=== PATIENT | male | born 1955 | race Caucasian/White ===

== ENCOUNTER 2017-04-07 12:00 | Inpatient (IN) | payer OTHER ==
[~2017-04-07] VITALS: Ht 188 cm; Wt 111.1 kg
--- NOTE | ~2017-04-07 | DS ---
PATIENT'S NAME: KIERSTEN ANDERSON [facility] AGE: 61 Y [address] ROOM: [address] [place], [place] [address] LOCATION: GPCU ADMIT DATE: 04/07/2017 Discharge Summary DISCHARGE DATE: 04/11/2017 FAMILY PHYSICIAN: Angel Luis Hughes MD ATTENDING PHYSICIAN: Sheron Reynolds DISCHARGE DIAGNOSES: 1. Acute anterior wall ST-segment elevation myocardial infarction, treated with primary percutaneous coronary intervention. 2. Ejection fraction of 35% to 40%. 3. Hypertension. 4. Tobacco abuse. 5. Heartburns. 6. Residual 70% or so lesion involving obtuse marginal 1. DISCHARGE MEDICATIONS: 1. Aspirin 81 mg once a day. 2. Atorvastatin 80 mg a day. 3. Metoprolol 12.5 mg 3 times a day. 4. Protonix 40 mg a day. 5. Brilinta 90 mg b.i.d. 6. Tylenol p.r.n. 7. Nitroglycerin 0.4 mg sublingual as needed. COURSE IN HOSPITAL: The patient was initially admitted to [place] [facility]. He was clearly having an acute anterior wall OK. He was started on heparin and Integrilin and the patient could not be flown because of the weather and so was here brought over by ground ambulance. Primary PCI of type 3 LAD proximal lesion was performed. There was also additional lesions involving obtuse marginal 1, which probably need to be kept an eye on. Initially, he also had an intraaortic balloon pump placed because of very large area of myocardium subtended by the lesion. By his lab work, his CPK went to a maximum of 6262. His initial echocardiogram revealed an ejection fraction of 30% to 35%. The patient had LESTER-3 flow at the end of the procedure and had no further chest pains. His balloon pump was removed 24 hours later. He did have borderline low blood pressure during the hospitalization. He was started on a small dose of beta-blockers and he began to gain strength over the next few days. He had no significant arrhythmias noted. Before his discharge, a repeat echocardiogram revealed an ejection fraction of 35% to 40%. There was no apical hematoma noted in the LV. The patient is being discharged home, to be seen in 2 weeks, up until then he is going to take it easy and not to do anything physically strenuous. He is not going to drive. He is going to start cardiac rehab after he has seen me. If he has any problems with tolerating any other medications, I have asked him PATIENT'S NAME: KIERSTEN ANDERSON [facility] AGE: 61 Y [address] ROOM: [place] [address] [facility] ADMIT DATE: 04/07/2017 Discharge Summary DISCHARGE DATE: 04/11/2017 FAMILY PHYSICIAN: Angel Luis Hughes MD ATTENDING PHYSICIAN: Sheron Reynolds to call me. As the patient is a smoker, we had given him strong recommendations to stop completely smoking at this time. He will also be on low-fat diet and an exercise program will be discussed after he is done with his cardiac rehab. MD DINORAH RAMOS/kody /[id number] d: 04/17/17 1813 t: 04/24/17 1349, DISCHARGE SUMMARY
--- NOTE | ~2017-04-07 | HP ---
PATIENT'S NAME: KIERSTEN RAO [facility] AGE: 61 Y [address] ROOM: [id number] [place], [place] [address] LOCATION: [facility] ADMIT DATE: 04/07/2017 History & Physical DISCHARGE DATE: FAMILY PHYSICIAN: Angel Luis Hughes MD ATTENDING PHYSICIAN: Shade Perez DATE OF SERVICE: 04/07/2017 INDICATION: Acute ST-segment elevation NH. HISTORY OF PRESENT ILLNESS: Mr. Rao is a 61-year-old male patient, who was in his pale order when he developed a sense of feeling very hot and developed chest pain which radiated to the left arm. He went to the [place] [facility], where an EKG revealed acute ST-segment elevation NH. After discussing with myself, the patient was started on aspirin, heparin, and Integrilin and was transferred by ground ambulance. Because of weather, he could be flown in. The patient has had a similar episode about a week ago that lasted about 5 minutes. He has through the week had recurrent episodes of nausea, vomiting, and some heartburns. He has recently had a physical exam for his knee scope which was done recently according to him, but he cannot remember. 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 He has been in functional class II. He does not have any structured exercise program. There is no paroxysmal nocturnal dyspnea or orthopnea. He has never had sleep apnea diagnosed. He denies lightheadedness, dizziness, syncope, presyncope, palpitations, etc. He had a little bit of an ankle swelling after he had his knee scope. The patient has history of hypertension and he smokes. His lipids are unknown. He is not diabetic, and there is no family history of premature coronary artery disease. His son at age of 20 had a sudden cardiac from sounds of it. He denies NH or angina or nitroglycerin use. There is no history of rheumatic fever, heart murmur, heart failure, dilated or enlarged heart, or any diagnosed cardiac arrhythmias. MEDICATIONS: The patient currently does not take any medication on a regular basis. He takes an occasional Tylenol, ibuprofen, or heartburn medication on a p.r.n. basis. PAST MEDICAL HISTORY: PATIENT'S NAME: [facility] AGE: 61 Y [address] ROOM: [place] [address] LOCATION: [facility] ADMIT DATE: 04/07/2017 History & Physical DISCHARGE DATE: FAMILY PHYSICIAN: Angel Luis Hughes MD ATTENDING PHYSICIAN: Shade Perez 1. Cholecystectomy. 2. Prostate surgery. 3. Knee scope. 4. Cyst removed from the ankle. SOCIAL HISTORY: The patient is . He denies abusing alcohol or any recreational drugs. His appetite is poor. Weight is down by 7 pounds. Sleep is fair. FAMILY HISTORY: No premature coronary artery disease, but has history of sudden cardiac in his son at the age of 20. REVIEW OF SYSTEMS: Twelve-point review of systems reveal: 1. Corrective lenses. 2. Heartburns. 3. DJD. PHYSICAL EXAMINATION: VITAL SIGNS: On examination, his blood pressure is 120s/70s, heart rate is in the low 100s and regular, sinus rhythm, respiration is 20, afebrile. HEENT: Normal. NECK: Supple with no JVD, thyromegaly, lymphadenopathy, or carotid bruit. PMI is not well located. First and second heart sounds are regular. There are no added sounds or murmurs. CHEST: Clear to auscultation. ABDOMEN: Soft and nontender. Bowel sounds are normally present. EXTREMITIES: Reveal no edema. CENTRAL NERVOUS SYSTEM: Intact. DIAGNOSTIC STUDIES: His 12-lead EKG is consistent with acute ST-segment elevation myocardial infarction involving the anterior wall. His CBC and BMP are within normal range. RECOMMENDATIONS: Proceed with primary PCI. SHADE PEREZ MD AMK/kenroyl PATIENT'S NAME: [facility] AGE: 61 Y [address] ROOM: [place] [address] LOCATION: [facility] ADMIT DATE: 04/07/2017 History & Physical DISCHARGE DATE: FAMILY PHYSICIAN: Angel Luis Hughes MD ATTENDING PHYSICIAN: Shade Perez /[id number] D: [id number] T: [id number] HISTORY & PHYSICAL
--- NOTE | ~2017-04-07 | ECHO ---
Transthoracic Echocardiography Report (TTE) Demographics Patient Name KIERSTEN ANDERSON Date of Study 04/07/2017 Patient Number [id number] Visit Number [id number] Date of 1955 Room Number [id number] Gender Male Number Age 61 year(s) Referring Gail Holbrook Soft Mud Molder Tyrone Muñoz RDCS, Physician RVT Saul Roca MD Physician Interpreting Gail Holbrook Trailhead Construction Worker Physician Supervising Ordering Gail Holbrook MD/MLP Physician Nurse Stress Urban Sociologist Conclusions Contractility Score Summary At rest the following contractility abnormalities were noted: Hypokinesis of the Mid jaswinder-lateral, the Mid anterior, the Mid infero-septal, the Mid inferior, the Mid infero-lateral and the Basal jaswinder-septal segments; Akinesis of the Mid jaswinder-septal, the Apical inferior, the Apical septal, the Apical lateral, the Apical anterior and the Apical cap segments. Contractility of all other segments appeared normal. Summary The estimated left ventricular ejection fraction is 30-35% due to severe hypokinesia involving the distal anterior,distal lateral,distal inferior york and apex.LV internal dimension and wall thickness are normal. Pleural effusion present. After Definity contrast iv there is no filling defect suggestive of thrombus. Procedure Type of Study TTE procedure:2D Echocardiogram, Echo with Contrast. Procedure Date Date: 04/07/2017 Start: 05:12 PM Study Location: Inpatient Portable Technical Quality: Adequate visualization Indications:Myocardial infarction. Appropriate Use Criteria: 9 Patient Status: Routine Contrast Medium: Definity. Amount - 5 ml HR: 96 bpm BP: 123/79 mmHg Allergies - Antibiotics. M-Mode/2D Measurements LV Diastolic Dimension: 3.48 cm LV Systolic Dimension: 2.82 cm LV Septum Diastolic: 1.11 cm LV PW Diastolic: 0.94 cm Cardiac Output: 8.34 l/min LA Dimension: 3 cm LVOT: 2.5 cm RV Base: 3.64 cm LVOT VTI: 17.7 cm RV Mid: 2.79 cm LV Stroke volume: 86.84 ml TAPSE: 1.66 cm TDI-S': 13.7 cm/s Doppler Measurements AV Peak Velocity: 0.92 m/s MV Peak E-Wave: 0.92 m/s AV Peak Gradient: 3.42 mmHg AV Mean Gradient: 2 mmHg MV P1/2t: 43 msec LVOT Peak Velocity: 0.95 m/s TR Velocity:1.19 m/s TR Gradient:5.66 mmHg Estimated PASP: 13.66 mmHg Estimated RAP:8 mmHg A' Septal Velocity: 0.1 m/s Estimated RVSP: 14 mmHg A' Lateral Velocity: 0.16 m/s E' Septal Velocity: 0.07 m/s E' Lateral Velocity: 0.06 m/s Findings Left Ventricle LVEF:30-35% due to severe hypokinesia involving distal anterior,distal lateral,distal inferior york and apex.There is no apical thrombus.LV internal dimension and wall thickness are normal. Right Ventricle Normal right ventricle structure and function. Left Atrium Normal left atrial size. Right Atrium Normal right atrial size. Mitral Valve Normal mitral valve structure and function. Aortic Valve Normal aortic valve structure and function. Velocities may be inaccurate due to balloon pump. Tricuspid Valve Trivial tricuspid regurgitation by color Doppler. Pulmonic Valve The pulmonic valve is not well visualized. Pericardial Effusion No evidence of pericardial effusion. Miscellaneous Visualized portions of the aortic root appear normal in size. Pleural Effusion Pleural effusion present. Contractility Score LV regional wall motion:(0-Non visualized 1-Normal 2-Hypokinesis 3-Akinesis 4-Dyskinesis 5-Aneurysm) Signature dtt: Sheron Reynolds dtd: 04/07/17 3235 Physician Self Edit
--- NOTE | ~2017-04-07 | ECHO ---
Transthoracic Echocardiography Report (TTE) Demographics Patient Name KIERSTEN ANDERSON Date of Study 04/11/2017 Patient Number [id number] Visit Number [id number] Date of 1955 Room Number [id number] Gender Male Number Age 61 year(s) Referring Gail Holbrook Client Account Assistant Tyrone Muñoz RDCS, Physician MD JOSHUA Roca MD Physician Interpreting Gail Holbrook Bridge Rigger Physician Supervising Ordering Gail Holbrook MD/GREGORYP Physician Nurse Stress Carcass Washer Conclusions Contractility Score Summary At rest the following contractility abnormalities were noted: Hypokinesis of the Mid anterior segment; Akinesis of the Apical inferior, the Apical septal, the Apical lateral, the Apical anterior and the Apical cap segments. Contractility of all other segments appeared normal. Summary The estimated left ventricular ejection fraction is 35%-40%. [place] is severely hypokinetic. Normal LA size. Procedure Type of Study TTE procedure:Echo Limited w/o Contrast. Procedure Date Date: 04/11/2017 Start: 10:15 AM Study Location: Inpatient Portable Technical Quality: Adequate visualization Indications:Low EF and Myocardial infarction. Appropriate Use Criteria: 9 Patient Status: Routine HR: 74 bpm BP: 110/56 mmHg Allergies - Antibiotics. M-Mode/2D Measurements LV Diastolic Dimension: 3.79 cm LV Systolic Dimension: 2.46 cm LV Septum Diastolic: 0.9 cm LV PW Diastolic: 0.86 cm LA Dimension: 3.6 cm Findings Left Ventricle The left ventricle is normal in size . Contractility Score LV regional wall motion:(0-Non visualized 1-Normal 2-Hypokinesis 3-Akinesis 4-Dyskinesis 5-Aneurysm) Signature dtt: Sheron Reynolds dtd: 04/11/17 1015 Physician Self Edit
--- NOTE | ~2017-04-07 | CATH ---
Cardiac Diagnostic + PCI Report Demographics Patient Name MONICA Lange Gender Male Date of 1955 Age 61 year(s) Patient Number [id number] Date of Study 04/07/2017 Visit Number [id number] Room Number G6333 Corporate ID Ht 188 cm Wt 108 kg Referring [facility] Primary Physician Physician [facility] Performing Gail Secondary Physician Physician Sheron SANCHEZ Diagnostic Gail Assisting Physician Physician Sheron SANCHEZ Interventional Gail Physician Mailroom Clerk Physician Sheron SANCHEZ Findings and Conclusions Diagnostic Findings and Conclusion Acute anterior STEMI. Diagnostic Recommendations PCI proximal large LAD. IABP secondary to 40% of myocardium involved. Large OM lesion need future evaluation and treatment. Interventional Findings and Conclusion Successful PAMELA to proximal LAD. Successful placement of the IABP. Interventional Recommendations DAPT for one year. Aggressive secondary precaution measures. Stress in 3 months to evaluate OM1. Procedure Description The patient was brought to the diagnostic cardiac catheterization-EP laboratory by emergency personal. Physician deemed procedure as EMERGENT. The planned puncture-incision site(s) were shaved and prepped with ChloraPrep and draped in the usual sterile manner. Conscious sedation, supplemental oxygen, and pain control medications were delivered by a registered nurse under physician guidance. Surface ECG rhythm, blood pressure measurement, and pulse oximetry were monitored throughout the procedure. Arterial access. The access site was infiltrated with lidocaine. The vessel was entered with the Seldinger technique. A sheath was advanced into the vessel and used for catheter placement. Selective left coronary angiography. A catheter was advanced into the left coronary vessel ostium under Fluoroscopic guidance. Contrast was injected by hand. Images were obtained in multiple projections. Selective right coronary angiography. A catheter was advanced into the right coronary vessel ostium under fluoroscopic guidance. Contrast was injected by hand. Images were obtained in multiple projections. Angioplasty and Stent Placement: A guiding catheter was used to intubate the vessel. A 0.14 wire was then used to cross the lesion. A balloon catheter was placed across the lesion and inflated. The balloon catheter was then removed. A Drug Eluting Stent was placed and inflated. Post placement angiograms were performed. IABP placement. The balloon catheter was advanced into the aorta and the tip was fluoroscopically positioned just distal to the left subclavian artery origin. The floppy guidewire was removed, and the central lumen of the catheter was flushed and attached to a pressure transducer. Balloon pumping was initiated, adjusting inflation and deflation times to maximize diastolic augmentation and minimize presystolic LV afterload. The intra-aortic balloon catheter was sutured in place at the end of the procedure. Arterial artery hemostasis was achieved. The patient was transferred to ICU via cart accompanied by a nurse. The patient left the laboratory in stable condition. Diagnostic Cath Status: Emergency Interventional Cath Status: Emergency Procedure Procedure Type Diagnostic procedure:Angiography:, Coronary Angios PCI procedure:Drug Eluting Coronary Stent:, LAD, Support:, IABP:, Insertion Indications: Acute IN, ST changes and Acute anterior wall IN. Angiographic Findings Dominance: Left Cardiac Arteries and Lesion Findings LMCA: Luminal irregularities. LAD: Type III proximal 100% stenosis at first small Diag. Lesion on Prox LAD: Proximal subsection.100% stenosis 20 mm length reduced to 0%. Pre procedure LESTER 0 flow was noted. Post Procedure LESTER III flow was present. The guidewire cross was successful.The lesion was diagnosed as a low risk lesion.Culprit lesion. Devices used - Luge Wire .014 x 182. Number of passes: 1. - Emerge Balloon 2.0 x 15. 2 inflation(s) to a max pressure of: 6 brian. - Emerge Balloon 3.0 x 20. 3 inflation(s) to a max pressure of: 14 brian. - Promus Premier 3.0 x 20 Stent. 2 inflation(s) to a max pressure of: 16 brian. LCx: Luminal irregularities. OM 1 large, proximal 70% stenosis then multiple small OMs. Lesion on 1st Ob Evon: Proximal subsection.70% stenosis . RCA: Non-dominant. 50% stenosis. Lesion on Prox RCA: Mid subsection.50% stenosis . Coronary Tree Procedure Data Procedure Date Date: 04/07/2017Start: 12:30 PMEnd: 02:18 PM Entry Locations - Retrograde Percutaneous access was performed through the Right Femoral artery (Primary location). A 7 Fr sheath was inserted. Procedure Medications Order and Administration + + + + + !Time !Medication !Dosage !Route ! + + + + 04/07/2017 12:29 PM!Versed !2 mg !I.V. ! + + + + + !04/07/2017 12:29 PM!Fentanyl !50 mcg !I.V. ! + + + + 04/07/2017 12:34 PM!Integrilin (ACC_7) !19 mg !I.V. bolus ! + + + + + 04/07/2017 12:42 PM!Heparin (ACC_3) !4000 units!I.V. bolus ! + + + + + 04/07/2017 01:02 PM!Fentanyl !50 mcg !I.V. ! + + + + + !04/07/2017 01:30 PM!Brilinta (Ticagrelor) (ACC_20)!180 mg !P.O. ! + + + + + !04/07/2017 01:45 PM!Heparin (ACC_3) ! !I.V. drip ! + + + + + Devices Used - A6 Fr. BS JR 4 Diag. Catheterwas used for:Right coronary angiography. - A6 Fr. BS JL 4 Diag. Catheterwas used for:Left coronary angiography. - A6 Fr. EBU 4 Guide Catheterwas used for:LAD Intervention.Unable to cannulate the vessel. - A6 Fr. EBU 3.5 Guide Catheterwas used for:LAD Intervention. Contrast Material - Isovue [id number] ml Fluoroscopy Time: Diagnostic: 16:42 minutes. Total: 16:42 minutes. Fluoroscopy Dose: Diagnostic: 3529 mGy. Total: 3529 mGy. Estimated Blood Loss: 20 ml. IABP: IABP was Inserted after PCI has begun. Medical History Allergies - Antibiotics. Risk Factors The patient risk factors include:Current/Recent(w/in 1 year) tobacco use. Admission Data Admission Date: 04/07/2017 Admission Time: 12:15 PM Admit Source: Transfer acute care facility Insurance Payors: Private health insurance. Clinical Evaluation Leading to Procedure - The patient's CAD presentation was assessed as: STEMI.The symptom onset was first noted on 04/07/2017 09:00 AM(time was estimated). Hemodynamics Condition: Rest O2 Consumption: Estimated: 295.51Heart Rate: 95 bpm Pressures (mmHg) +-----+ + !Site !Pressure ! +-----+ + !AO !118/83 (98) ! +-----+ + !AO !97/65 (79) ! +-----+ + !AO !/ (230) ! +-----+ + !AO !121/77 (99) ! +-----+ + Shunts Oxygen Values O2 Capacity 223.04 O2 Consumption 295.51 Signatures dtt: Sheron Reynolds dtd: 04/07/17 1230 Physician Self Edit
[2017-04-07] MEDS ORDERED: ADVIL200 MG PO (15:28)
[2017-04-07] MEDS ORDERED: ZANTAC (NON-FO150 MG PO (15:28)
--- NOTE | 2017-04-07 15:59 | NUR ---
CONSULT RECEIVED FOR HEART HEALTHY DIET EDUCATION. WILL PROVIDE DIET EDUCATION PRIOR TO DISMISSAL.
[2017-04-07 16:29] LABS: CPK 6262 IU/L (35-332)
[2017-04-07 18:34] LABS: BASOPHIL % 0.1 %; EOSINOPHIL % 0.1 %; HEMATOCRIT 44.6 % (37.0-53.0); HEMOGLOBIN 15.1 g/dL (11.0-16.0); IMMATURE GRANULOCYTE # 0.1 K/uL (0.0-0.3); IMMATURE GRANULOCYTE % 0.3 %; LYMPHOCYTE # 1.9 K/uL (0.8-4.0); LYMPHOCYTE % 13.5 %; MCH 30.2 pg (27.0-34.0); MCHC 33.9 gm/dL (32.0-36.5); MCV 89.2 fl (83.0-98.0); MONOCYTE # 1.3 K/uL (0.0-1.0); MPV 9.2 fl (9.4-12.4); NEUTROPHIL # (ANC) 11.1 K/uL (1.4-9.0); NRBC % 0 /100WBC (0-0.00); PLATELET COUNT 239 K/uL (150-450); RDW-CV 13.1 % (11.9-14.6); WBC 14.4 K/uL (4.0-11.0)
--- NOTE | 2017-04-07 18:58 | NUR ---
Significant Event: CARDIO: IABP, 100%, 1:1. AUGMENTED PRESSURE 120S-150S. Afebrile. Hematoma not progressing past marked area. HR 95-100. GI: Acid reflux. Emesis x 2. Zofran 4 mg given. Protonix given. PAIN: Morphine 4mg x 1.
[2017-04-07 21:52] LABS: CPK 4466 IU/L (35-332)
[2017-04-08 04:21] LABS: ALBUMIN 3.4 gm/dL (3.5-5.0); ALK PHOS 142 IU/L (33-138); BLOOD UREA NITROGEN 25 mg/dL (6-24); CALCIUM 8.2 mg/dL (8.5-10.5); CHLORIDE 105 mMol/L (96-110); CO2 24 mMol/L (22-32); CREATININE 0.8 mg/dL (0.6-1.3); ESTIMATED GFR (MDRD EQUATION) > 60; SODIUM 138 mMol/L (135-145); TOTAL BILIRUBIN 0.7 mg/dL (0.0-1.5)
[2017-04-08 04:22] LABS: ALT 398 IU/L (12-78); AST 726 IU/L (10-40)
--- NOTE | 2017-04-08 05:52 | NUR ---
PT REMAINS ON IABP, 1:1 ASSIST, 100% AUGMENTATION. PULSES REMAIN PALPABLE IN WRISTS, DOPPLARABLE IN BLE. 500 ML UOP THIS SHIFT. LESS NAUSEA/VOMITING SHIFT PROGRESSED, TOLERATING PO INTAKE BETTER SHIFT PROGRESSED. DR. Whyte UPDATED WITH ISSUES REGARDING VOMITING; ONE TIME ORDER FOR REGLAN RECEIVED AND GIVEN WITH POSITIVE EFFECT. HR NOW 60S-70S RATHER THAN 100S UPON THIS RN'S ARRIVAL. AFEBRILE. RESTLESS THIS SHIFT DUE TO DISCOMFORT WITH KEEPING RLE STRAIGHTENED OUT. PRN DOSE OF APAP GIVEN AT 0520 FOR COMPLAINTS OF BACK BEING ACHY. INTEGRILIN STOPPED AT 1999, NS STOPPED AFTER 750 ML INFUSED. NEVA SHORT RN
--- NOTE | 2017-04-08 16:27 | NUR ---
SIGNIFICANT EVENT: PATIENT ALERT, ORIENTED X3. OPES EYES SPONTANEOUSLY AND TO VOICE. PUPILS EQUAL AND REACTIVE. SPEECH IS CLEAR AND APPROPRIATE. PATIENT MOVES ALL 4 EXTREMITIES SPONTANEOUSLY AND TO COMMANDS. EQUAL STRENGTH THROUGHOUT. PATIENT HAS BEEN I NSINUS RHYTHM HR 60-70S. PULSES PALPABLE THROUGHOUT, DOPPLERED BILAT PULSES. AFEBRILE, MAX TEMP 99.4. INTRA-AORTIC BALLOON PUMP IN 1:1 UNTIL 1200, THEN SWITCHED TO 1:[address] NASH D/C'D IABP AT BEDSIDE AT 1530, 20 MINUTES OF MANUAL PRESSURE HELD, THEN FEM STOP APPPLIED AT 70 MMHG PER OORDER. ORDERS TO KEEP AT FEM STOP ON FOR 6 HOURS, RELEASE ALL PRESSURE FOR 5 MINUTES, THEN RE APPLY FEM STOP AT 70MMHG FOR 1 HOUR AND REPEAT FOR 6 HOURS. PATIENT TOLERATING WELL, NO NEW HEMATOMAS NOTED. PULSES INTACT POST IABP D/C. BEDREST/ FLAT FOR 6 HOURS. PATIENT HAS BEEN ON ROOM AIR, SATS MID TO UPPER 90S. BOWEL SOUNDS ACTIVE, NO BM. ADEQUATE URINE OUTPUT, VOIDS PER URINAL. NO NEW SKIN ISSUES NOTED. BATH COMPLETED. FOLLOW UP: CONTINUE TO MONITOR, FOLLOW FEM STOP ORDERS
[2017-04-09 05:16] LABS: ANION GAP 10.7 (10.0-19.0); BLOOD UREA NITROGEN 22 mg/dL (6-24); CALCIUM 8.4 mg/dL (8.5-10.5); CHLORIDE 104 mMol/L (96-110); CO2 28 mMol/L (22-32); CREATININE 0.7 mg/dL (0.6-1.3); ESTIMATED GFR (MDRD EQUATION) > 60; POTASSIUM 3.7 mMol/L (3.7-5.1); SODIUM 139 mMol/L (135-145)
--- NOTE | 2017-04-09 06:44 | NUR ---
FEMSTOP REMOVED AT 2139, NO COMPLICATIONS FOR THIS RN. PT SAT UP, DANGLED AT BEDSIDE, AND AMBULATED WITHOUT INCIDENT. SLEPT WELL THIS SHIFT. GROIN REMAINS BRUISED WITH SLIGHTLY FIRM AREAS FROM HEMATOMA. UOP ADEQUATE. REMAINS ON ROOM AIR. NO COMPLAINTS OF PAIN NOW THAT HE IS ABLE TO MOVE INDEPENDENTLY. NEVA SHORT RN
--- NOTE | 2017-04-09 13:57 | NUR ---
A-SCREENED D/T MST; VISITED W/PT AND HE WAS ABLE TO RELAY HIS WT HX. PT HAS LOST ABOUT 4.4% OF HIS WT OVER THE LAST 2 MOS; NOT A SIG. AMOUNT. PT HAD A SCOPE ON HIS KNEE AT THAT TIME, AND HE WAS NOT ACTIVE SO HIS APPETITE WAS LESS THAN USUAL. HE REPORTS THAT HIS APPETITE IS IMPROVING; IT DEPENDS ON THE FOOD AND MEAL. HEART HEALTY DIET ED CONSULT RECEIVED; PT STATES HE HAS NEVER HAD ANY DIET EDUCATION PRIOR TO THIS ADMIT. 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 S/P CODE STEMI. BALLOON PUMP OUT. PCU STATUS HT: 74 IN. WT: 108 KG. BMI: 30.6 LABS: NA: 139, K+ 3.7, GLU 106, BUN 22, ANTHROPOLOGY AND ARCHEOLOGY INSTRUCTOR 0.7, ALB 3.4 MEDS: LIPITOR, PROTONIX, BRILINTA, ZOFRAN, PRD BOWEL MEDS, MORPHINE DIET RX: CARDIAC. PO INTAKE 50% EST NUTR NEEDS: [id number] KCALS (20-25 KCALS/KG) 86-108 GM PROTEIN (0.8-1.0 GM/KG) 1 ML FLUID/KCAL D-NOT AT NUTRITION RISK; NO NUTRITION RISK IDENTIFIED I-WILL COMPLETE DIET EDUCATION PRIOR TO D/C M/E-WILL ASSIST NEEDED
--- NOTE | 2017-04-09 15:49 | NUR ---
Introduced self and CM role to Ildefonso and his daughter who was at bedside. Ildefonso tells me that prior to coming into us, he was living at home, alone, in [place], [place] and it is his goal to return there when he is medically cleared to do so. Daughter states she lives near by and checks on him frequently. She did ask about POA paperwork to fill out incase they would ever need to refer to it for some reason. I gave her the advanced directive booklet and encouraged her to read through it with Ildefonso and fill it out as best as they could. I let her know that we did have someone in house that could notorize it if needed, but they would only be able to do it when they had a free moment to do so that could take a bit. She voiced understanding to this. Ildefonso is hopeful that he can go home in the next couple of days. Daughter did request records so they could send them into his [employer] policy in order to get money back from them. Let her know that she could have Ildefonso sign a release of medical records and obtain them when he was to be dismissed, but not sure that I could give them to her at this point. The records she wanted, were actually those from [facility], so I encouraged her to call down to their hospital and see if they could give her the paperwork that she was needed. She was going to do this. No other questions, needs or concerns. CM to continue to follow and assist. Plan home.
[2017-04-10 04:01] LABS: BASOPHIL % 0.3 %; EOSINOPHIL # 0.2 K/uL (0.0-0.5); EOSINOPHIL % 1.5 %; HEMATOCRIT 33.7 % (37.0-53.0); HEMOGLOBIN 11.7 g/dL (11.0-16.0); IMMATURE GRANULOCYTE # 0.1 K/uL (0.0-0.3); IMMATURE GRANULOCYTE % 0.5 %; LYMPHOCYTE # 3.2 K/uL (0.8-4.0); LYMPHOCYTE % 27.3 %; MCH 30.2 pg (27.0-34.0); MCHC 34.7 gm/dL (32.0-36.5); MCV 87.1 fl (83.0-98.0); MONOCYTE # 1.3 K/uL (0.0-1.0); MONOCYTE % 10.8 %; MPV 9.1 fl (9.4-12.4); NEUTROPHIL # (ANC) 6.9 K/uL (1.4-9.0); NEUTROPHIL % 59.6 %; NRBC % 0 /100WBC (0-0.00); RBC 3.87 M/uL (3.50-5.50); RDW-CV 12.9 % (11.9-14.6); WBC 11.6 K/uL (4.0-11.0)
[2017-04-10 04:03] LABS: PLATELET COUNT 185 K/uL (150-450)
[2017-04-10 04:15] LABS: ANION GAP 11.6 (10.0-19.0); BLOOD UREA NITROGEN 18 mg/dL (6-24); CALCIUM 8.3 mg/dL (8.5-10.5); CHLORIDE 102 mMol/L (96-110); CO2 28 mMol/L (22-32); CREATININE 0.7 mg/dL (0.6-1.3); ESTIMATED GFR (MDRD EQUATION) > 60; POTASSIUM 3.6 mMol/L (3.7-5.1); SODIUM 138 mMol/L (135-145)
--- NOTE | 2017-04-10 05:06 | NUR ---
Significant Event:Patient transfered to PCU post code STEMI on 04/07. Ballon pump dc'd on 04/08, stent to the LAD. R)groin, hip, and thigh bruised no hematoma noted. CSM wnl. Pulses 2-1-2. No c/o pain. VSS on RA. PIV to R)hand saline locked. Follow up:Possible discharge?
--- NOTE | 2017-04-10 13:50 | NUR ---
HEART HEALTHY DIET ED COMPLETED W/PT. PT ASKED QUESTIONS DURING OUR VISIT. EXPECT GOOD COMPLIANCE. WRITTEN INFORMATION, ALONG WITH RD CONTACT INFORMATION LEFT WITH PT. ENCOURAGED TO CALL OR EMAIL WITH ANY QUESTIONS.
--- NOTE | 2017-04-10 16:38 | NUR ---
Significant Event: A/O X 3. UP AD VAIBHAV. DENIES CHEST PAIN. ECHO 30-35%. AFEBRILE HR SR IN 70-80'S. SBP A05-118. SATS 95% ON ROOM AIR. RT. GROIN, BRUISED, NO HEMATOMA. BANDAGE REMOVED, OPEN TO AIR. CONT. ON LOPRESSOR ORAL MED. Follow up: WILL RECHECK ECHO AT 2-3PM TOMORROW AND LOOK AT POSSIBLE DISCHARGE.
--- NOTE | 2017-04-11 05:11 | NUR ---
Significant Event: Patient alert and oriented. Up ad lola. Denies pain. VSS on room air. Pleasant and cooperative with cares Follow up: continueto to monitor,
--- NOTE | 2017-04-11 16:21 | NUR ---
AAOx3. Cooperative with cares. Up independently; ambulated in halls x3 today. Pt reported formed BM. Tolerating cardiac diet well. VSS, afebrile, on RA. Denies nausea, vomiting, and diarrhea. No calls from tele. IV s/l'd to RH. Rt groin/thigh wrapping laterally ecchymotic. Echo this afternooon.
[2017-04-11] MEDS ORDERED: ASPIRIN (CHILDR81 MG PO (18:42)
[2017-04-11] MEDS ORDERED: LIPITOR80 MG PO (18:44)
[2017-04-11] MEDS ORDERED: LOPRESSOR25 MG PO (18:45)
[2017-04-11] MEDS ORDERED: PROTONIX40 MG PO (18:46)
[2017-04-11] MEDS ORDERED: BRILINTA90 MG PO (18:47)
[2017-04-11] MEDS ORDERED: TYLENOL325 MG PO (18:48)
--- NOTE | 2017-04-12 15:24 | NUR ---
04/11/17 Introduced self and purpose of heart healthy education and care transitions. Calendar given, information reviewed, verbalized understanding.
== END 2017-04-11 19:30 | disposition disaster alternative care site (69) | DRG 272 ==
LOC: EDSTATUS 12:00 → GPCU 12:00 → GICU 12:15 → GPCU 12:15 → GICU 13:53 → GPCU 04-09 22:32
PROVIDERS: ADMIT Internal Medicine Interventional Cardiology
PROC: B246ZZZ Ultrasonography of Right and Left Heart (ICD-10-PCS; principal; 2017-04-07)
PROC: 027034Z Dilation of Coronary Artery, One Artery with Drug-eluting Intraluminal Device, Percutaneous Approach (ICD-10-PCS; principal; 2017-04-07)
PROC: 5A02210 Assistance with Cardiac Output using Balloon Pump, Continuous (ICD-10-PCS; principal; 2017-04-07)
PROC: B2111ZZ Fluoroscopy of Multiple Coronary Arteries using Low Osmolar Contrast (ICD-10-PCS; principal; 2017-04-07)
PROC: B246ZZZ Ultrasonography of Right and Left Heart (ICD-10-PCS; 2017-04-11)
DX: I21.3 ST elevation (STEMI) myocardial infarction of unspecified site (principal); I10 Essential (primary) hypertension; Z82.41 Family history of sudden cardiac death; Z72.0 Tobacco use
CPT/HCPCS: C1725; C1769; C1874; C1887; C8929; C9606; J1327; J1644; J2250; J2270; J2405; J2765; J3010; J3475; Q9957

== ENCOUNTER 2017-04-21 09:23 | Emergency (ER) | payer OTHER ==
--- NOTE | ~2017-04-21 | ENPV ---
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 Venous hemodynamics were evaluated with color flow and spectral Doppler. FINDINGS: The deep and superficial veins of the right leg show normal color flow and compressibility without thrombosis. IMPRESSION: 1. NEGATIVE RIGHT LOWER EXTREMITY VENOUS DOPPLER. Procedure Type of Study: Veins:Lower Extremities DVT Study, Lower Extremity Right. Indications for Study:Pain in Limb. Additional Indications:post cath Appropriate Use Criteria:7 Allergies - Antibiotics. Patient Status:Routine. Study Location:ER. Technical Quality:Adequate visualization. Velocities are measured in cm/s ; Diameters are measured in cm Right Lower Extremities DVT Study Measurements Right 2D and Doppler Measurements + + + + +------+------+ + !Location !Visualized!Compressibility!Thrombosis!Signal!Reflux!Reflux ! ! ! ! ! ! ! !(sec) ! + + + + +------+------+ + !GSV Thigh !Yes !Yes !None !Phasic!No ! ! + + + + +------+------+ + !Common !Yes !Yes !None !Phasic!No ! ! !Femoral ! ! ! ! ! ! ! + + + + +------+------+ + !Prox !Yes !Yes !None !Phasic!No ! ! !Femoral ! ! ! ! ! ! ! + + + + +------+------+ + !Mid Femoral!Yes !Yes !None !Phasic!No ! ! + + + + +------+------+ + !Dist !Yes !Yes !None !Phasic!No ! ! !Femoral ! ! ! ! ! ! ! + + + + +------+------+ + !Popliteal !Yes !Yes !None !Phasic!No ! ! + + + + +------+------+ + !Gastroc !Yes !Yes !None !Phasic!No ! ! + + + + +------+------+ + !PTV !Yes !Yes !None !Phasic!No ! ! + + + + +------+------+ + !Peroneal !Yes !Yes !None !Phasic!No ! ! + + + + +------+------+ + Left Lower Extremities DVT Study Measurements Left 2D and Doppler Measurements + + + + +------+------+ + !Location !Visualized!Compressibility!Thrombosis!Signal!Reflux!Reflux ! ! ! ! ! ! ! !(sec) ! + + + + +------+------+ + !Common !Yes !Yes !None !Phasic! ! ! !Femoral ! ! ! ! ! ! ! + + + + +------+------+ + Impressions Right Impression no dvt seen Signature dtt: Jim Bright dtrosemarie: 04/21/17 1134 Physician Self Edit
--- NOTE | ~2017-04-21 | ER ---
PATIENT'S NAME: [facility] AGE: 61 Y [address] ROOM: [place] [address] LOCATION: ED ADMIT DATE: 04/21/2017 ER/Outpatient Report DISCHARGE DATE: 04/21/2017 FAMILY PHYSICIAN: , NO ATTENDING PHYSICIAN: Fausto Sigala TIME OF ARRIVAL: 0923 hours. TIME OF EVALUATION: 0935 hours. CHIEF COMPLAINT: Left hip pain, right leg pain, feeling tired. HISTORY OF PRESENT ILLNESS: The patient is a 61-year-old male who presents to the emergency department today with chief complaint of left hip pain, right groin pain, and feeling tired. He reports that 2 weeks ago, he had an MD with stent placed by Dr. Luna. He had a balloon pump that was in place at that time. He reports he went home and had been feeling pretty good. However, in the past couple days, he has been feeling more tired. He reports he is having pain in the left side of his hip and into his butt. He denies any fevers or chills. No nausea or vomiting. No diarrhea or constipation. No chest pain. No shortness of breath. PAST MEDICAL HISTORY: Coronary artery disease with stenting. PAST SURGICAL HISTORY: Cholecystectomy, prostate, knee scope, cyst removed from the ankle. SOCIAL HISTORY: The patient is . Denies any alcohol or illicit drug use. Does report smoking a pack per day. ALLERGIES: NO KNOWN DRUG ALLERGIES. MEDICATIONS: Please see list. PRIMARY CARE DOCTOR: Angel Luis Hughes MD. REPRODUCTION PRODUCTION MANAGER: Sheron Reynolds MD. PATIENT'S NAME: [facility] AGE: 61 Y [address] ROOM: [place] [address] LOCATION: ED ADMIT DATE: 04/21/2017 ER/Outpatient Report DISCHARGE DATE: 04/21/2017 FAMILY PHYSICIAN: PHYSICIAN, NO ATTENDING PHYSICIAN: Fausto Sigala REVIEW OF SYSTEMS: All systems are reviewed by myself and negative with the exception of those discussed in HPI and past medical history. PHYSICAL EXAMINATION: VITAL SIGNS: Blood pressure 107/72, pulse 71, respiratory rate 20, temperature 98.7, oxygen saturation 96% on room air. GENERAL: The patient is a 61-year-old male, appears of stated age, in no acute distress at this time. HEENT: Head normocephalic, atraumatic. Pupils are equal, round, and reactive to light. Oropharynx is clear. NECK: Supple. There is no nuchal rigidity. CARDIOVASCULAR: Regular rate and rhythm. No murmurs, rubs, or gallops. LUNGS: Clear to auscultation bilaterally. No wheezes, rales, or rhonchi. ABDOMEN: Soft, nontender, and nondistended. No rebound, rigidity, or guarding. MUSCULOSKELETAL: The patient moves all 4 extremities. He does have tenderness to palpation over the sciatic nerve in the left side. SKIN: Warm and dry. Does have ecchymosis noted to the right groin down of the right leg. LABORATORY DATA AND X-RAYS: EKG is obtained, interpreted by myself, shows sinus rhythm with a rate of 67, normal axis, normal interval. There is T-wave inversions V1, V2, V3. Repeat 2-hour EKG is unchanged. Venous Doppler is negative for DVT or any evidence of aneurysm. D-dimer is 0.75. CMP is unremarkable. LFTs are normal. Magnesium is normal. CK is normal. CK-MB is normal. Troponin is 0.224. Repeat 2-hour cardiac enzymes, troponin 0.234. ProBNP is 1449. IMPRESSION: 1. Left hip pain with radiculopathy. 2. Fatigue. 3. Initial visit. EMERGENCY DEPARTMENT COURSE: The patient brought back to the examination room. Seen and evaluated by myself. Laboratory analysis and imaging are obtained as described above. I have discussed results with the patient. I have discussed results with the patient's daughter as well. I have contacted Dr. Reynolds, the patient's oracle pl sql developer who did the stenting. There is no chest pain. There is no shortness of breath. EKG is to be expected status post ST elevation myocardial infarction. With the results and case, I have discussed with Dr. Reynolds, we are comfortable in allowing the patient to go home at this time. Dr. Reynolds has asked the patient to follow up with him early next week. I have written a prescription for [place] with sedation warning as well PATIENT'S NAME: KIERSTEN ANDERSON [facility] AGE: 61 Y [address] ROOM: [place] [address] LOCATION: [facility] ADMIT DATE: 04/21/2017 ER/Outpatient Report DISCHARGE DATE: 04/21/2017 FAMILY PHYSICIAN: PHYSICIAN, NO ATTENDING PHYSICIAN: Fausto Sigala as prednisone for the left hip and radiculopathy pain. I have discussed return to care instructions including chest pain, shortness of breath, or any other concerns to return to the emergency department as soon as possible. The patient is agreeable with plan without further questions. DISPOSITION: The patient discharged home in good condition. DO RAI TRACY/kody /[id number] d: 04/21/17 1854 t: 04/23/17 1600, OUTPATIENT REPORT
[~2017-04-21 09:23] MED LIST: ADVIL200 MG PO; ASPIRIN (CHILDR81 MG PO; BRILINTA90 MG PO; LIPITOR80 MG PO; LOPRESSOR25 MG PO; PROTONIX40 MG PO; TYLENOL325 MG PO; ZANTAC (NON-FO150 MG PO
[2017-04-21 10:18] LABS: BASOPHIL % 0.3 %; EOSINOPHIL # 0.2 K/uL (0.0-0.5); EOSINOPHIL % 1.2 %; HEMATOCRIT 39.2 % (37.0-53.0); HEMOGLOBIN 13.1 g/dL (11.0-16.0); IMMATURE GRANULOCYTE # 0.1 K/uL (0.0-0.3); IMMATURE GRANULOCYTE % 0.4 %; LYMPHOCYTE # 2.6 K/uL (0.8-4.0); LYMPHOCYTE % 20.1 %; MCH 29.9 pg (27.0-34.0); MCHC 33.4 gm/dL (32.0-36.5); MCV 89.5 fl (83.0-98.0); MONOCYTE # 1.4 K/uL (0.0-1.0); MONOCYTE % 10.8 %; MPV 8.7 fl (9.4-12.4); NEUTROPHIL # (ANC) 8.6 K/uL (1.4-9.0); NEUTROPHIL % 67.2 %; NRBC % 0 /100WBC (0-0.00); RBC 4.38 M/uL (3.50-5.50); WBC 12.8 K/uL (4.0-11.0)
[2017-04-21 10:24] LABS: INR - (THERAPEUTIC) 1.02 (0.92-1.07); PROTIME 10.7 SECONDS (9.8-11.4); PTT 30 SECONDS (25-32)
[2017-04-21 10:30] LABS: PLATELET COUNT 343 K/uL (150-450)
[2017-04-21 10:35] LABS: ALBUMIN 3.6 gm/dL (3.5-5.0); ALK PHOS 101 IU/L (33-138); ALT 48 IU/L (12-78); ANION GAP 14.4 (10.0-19.0); AST 24 IU/L (10-40); BLOOD UREA NITROGEN 29 mg/dL (6-24); CALCIUM 9.1 mg/dL (8.5-10.5); CHLORIDE 103 mMol/L (96-110); CO2 26 mMol/L (22-32); CPK 53 IU/L (35-332); ESTIMATED GFR (MDRD EQUATION) > 60; MAGNESIUM 2.3 mg/dL (1.8-2.6); POTASSIUM 4.4 mMol/L (3.7-5.1); SODIUM 139 mMol/L (135-145); TOTAL PROTEIN 8.2 g/dL (6.0-8.4)
== END 2017-04-21 12:51 | disposition disaster alternative care site (69) ==
LOC: GMED 09:23
PROVIDERS: Emergency Medicine
DX: M54.10 Radiculopathy, site unspecified (principal); M25.552 Pain in left hip; R53.83 Other fatigue; I25.2 Old myocardial infarction; I25.10 Atherosclerotic heart disease of native coronary artery without angina pectoris; F17.210 Nicotine dependence, cigarettes, uncomplicated; Z90.49 Acquired absence of other specified parts of digestive tract; Z98.890 Other specified postprocedural states; Z79.82 Long term (current) use of aspirin; Z79.899 Other long term (current) drug therapy